=== PATIENT | female | born 1970 | race African-American/Black ===

== ENCOUNTER 2017-06-29 17:11 | Emergency (ER) | payer BC, OTHER ==
[~2017-06-29] VITALS: Ht 167.6 cm; Wt 89.1 kg
[2017-06-29] MEDS ORDERED: HYDROCODONE/ACETAMINOPHEN 5-325 MG TABLET PO ONE (18:30)
[2017-06-29 19:15] VITALS: BP 132/85
== END 2017-06-29 19:23 | disposition home or self-care (01) ==
LOC: EMS 17:13
DX: S39.92XA Unspecified injury of lower back, initial encounter (principal); E78.00 Pure hypercholesterolemia, unspecified; Z88.8 Allergy status to other drugs, medicaments and biological substances; V49.59XA Passenger injured in collision with other motor vehicles in traffic accident, initial encounter; Y93.89 Activity, other specified; Y92.488 Other paved roadways as the place of occurrence of the external cause; Y99.8 Other external cause status
CPT/HCPCS: 72100; 99284